=== PATIENT | male | born 1985 | race Caucasian/White ===

== ENCOUNTER 2016-09-29 17:50 | Emergency (ER) | payer OTHER ==
[2016-09-29] MEDS ORDERED: TDAP ADULT 0.5 ML INJ (BOOSTRIX) IM ONE (17:57)
[2016-09-29] MEDS ORDERED: LET GEL TOPICAL 1 EA SYR TP ONE (17:58)
[2016-09-29 18:00] VITALS: TEMP 97.9
[2016-09-29] MEDS ORDERED: IBUPROFEN 600 MG TAB PO ONE (18:34)
--- NOTE | 2016-09-29 18:34 | EDPHY ---
H & P Time Seen by Provider: 09/29/16 18:00 HPI/ROS: CHIEF COMPLAINT: dog bite right hand HISTORY OF PRESENT ILLNESS: 30-year-old male presents emergency department by ambulance with a dog bite to his right hand. Patient reports pain in his pinky finger. He is [id number], unknown tetanus status. He reports tingling in his pinky. Vaccinations up-to-date on dog. Police were on scene. Smoking Status: Never smoked Physical Exam: GEN: Awake, alert, oriented, no acute distress RESP: nl resp effort MSK: Full active flexion and extension of right pinky finger at MCP, PIP and DIP joint. 2 point discrimination intact. 2 small superficial puncture wounds to dorsal aspect of right hand, no surrounding swelling or erythema, 2 small superficial puncture wounds to dorsal aspect of right pinky finger with 2 cm linear superficial abrasion. Cap refill less than 2 seconds. SKIN: See above Constitutional: Initial Vital Signs Temperature (C) 36.6 C 09/29/16 17:55 Heart Rate 87 09/29/16 17:55 Respiratory Rate 18 09/29/16 17:55 Blood Pressure 154/95 H 09/29/16 17:55 O2 Sat (%) 97 09/29/16 17:55 O2 Delivery Mode Room Air Allergies/Adverse Reactions: No Known Allergies Allergy (Unverified 09/29/16 18:01) Home Medications: Medication Instructions Recorded Albuterol [Proventil Inhaler HFA 1 - 2 puffs IH Q4H 09/29/16 (*)] Amoxicillin/Clavulanate Pot 875 mg PO BID #6 tab 09/29/16 [Augmentin 875Mg] Budesonide/Formoterol 160/4.5 1 puffs IH BID 09/29/16 [Symbicort 160-4.5 Mcg Inh (*)] Ranitidine HCl 150 mg PO 09/29/16 MDM/Departure - MDM Imaging Results: Imaging Impressions Finger X-Ray 09/29/16 17:58 Impression: 1. No acute osseous abnormality seen right fifth digit. Imaging: I viewed and interpreted images myself Medications Given: Discontinued Medications Diphtheria/Tetanus/Acell Pertussis (Boostrix) 0.5 ml IM .ONCE ONE Stop: 09/29/16 17:58 Last Admin: 09/29/16 18:03 Dose: 0.5 ml Tetracaine/Epinephrine/Lidocaine (Let Gel Topical) 1 ea TP EDNOW ONE Stop: 09/29/16 17:59 Last Admin: 09/29/16 18:03 Dose: 1 ea - Depart Disposition: Home, Routine, Self-Care Clinical Impression: Dog bite of right hand Qualifiers: Encounter type: initial encounter Qualified Code(s): S61.451A - Open bite of right hand, initial encounter Condition: Good Instructions: Animal Bite (ED) Additional Instructions: Take 875 mg of Augmentin twice daily for 3 days. Soak your hand in warm water 3 times a day for 3 days. Wash daily with soap and water, place antibiotic ointment and Band-Aid. Return to the emergency department for any fevers, increased swelling, redness, drainage, any other questions or concerns. Stand Alone Forms: Work Comp Follow Up Prescriptions: Amoxicillin/Clavulanate Pot [Augmentin 875Mg] 875 mg PO BID #6 tab
[2016-09-29 19:37] VITALS: BP 134/81; PULSE 65; RESP 20; O2SAT 96
== END 2016-09-29 19:38 | disposition home or self-care (01) ==
LOC: EDUNIT#
DX: S61.451A Open bite of right hand, initial encounter (principal); Z23 Encounter for immunization; W54.0XXA Bitten by dog, initial encounter